=== PATIENT | male | born 1980 | race African-American/Black ===

== ENCOUNTER 2017-11-06 15:34 | Outpatient (CLI) | payer OTHER | END 2017-11-06 15:35 | disposition home or self-care (01) | LOC: SC 15:34 | PROVIDERS: ATTEND Internal Medicine Pulmonary Disease | DX: G47.33 Obstructive sleep apnea (adult) (pediatric) (principal) | CPT/HCPCS: 99203; 99212 ==

== ENCOUNTER 2017-12-13 20:27 | Outpatient (CLI) | payer OTHER | END 2017-12-13 20:28 | disposition home or self-care (01) | LOC: SC 20:27 | PROVIDERS: ATTEND Internal Medicine Pulmonary Disease | DX: G47.33 Obstructive sleep apnea (adult) (pediatric) (principal); G47.61 Periodic limb movement disorder | CPT/HCPCS: 95810 ==

== ENCOUNTER 2017-12-27 09:29 | Outpatient (CLI) | payer OTHER | END 2017-12-27 09:30 | disposition home or self-care (01) | LOC: SC 09:29 | PROVIDERS: ATTEND Nurse Practitioner Family | DX: G47.33 Obstructive sleep apnea (adult) (pediatric) (principal); G47.61 Periodic limb movement disorder | CPT/HCPCS: 99212; 99214 ==

== ENCOUNTER 2018-03-04 08:50 | Outpatient (CLI) | payer OTHER | END 2018-03-04 08:51 | disposition home or self-care (01) | LOC: SC 08:50 | PROVIDERS: ATTEND Internal Medicine Pulmonary Disease | DX: G47.33 Obstructive sleep apnea (adult) (pediatric) (principal) | CPT/HCPCS: 99212; 99213 ==